=== PATIENT | female | born 1955 | race African-American/Black ===

== ENCOUNTER 2016-08-26 13:58 | Outpatient (CLI) ==
[2012-08-19 08:16] VITALS: TEMP 98.5
[2015-05-05 15:31] VITALS: BMI 35.2
[2016-08-27 13:04] LABS: HEPATITIS A ANTIBODY TOTAL Positive (Negative)
[2016-08-28 09:01] LABS: HEPATITIS B SURFACE ANTIBODY Reactive (.)
[2016-08-28 09:08] LABS: VARICELLA IGG ANTIBODY 1530 (Immune)
== END 2016-08-26 13:59 | disposition home or self-care (01) ==
LOC: LAB 13:58
PROVIDERS: ATTEND Internal Medicine
DX: Z11.59 Encounter for screening for other viral diseases (principal); Z76.2 Encounter for health supervision and care of other healthy infant and child
CPT/HCPCS: 36415; 86706; 86708; 86762; 86787; 87340

== ENCOUNTER 2017-11-02 12:48 | Outpatient (CLI) ==
[2012-08-19 08:16] VITALS: TEMP 98.5
[2015-05-05 15:31] VITALS: BMI 35.2
== END 2017-11-02 12:49 | disposition home or self-care (01) ==
LOC: LAB 12:48
PROVIDERS: ATTEND Internal Medicine
DX: Z11.59 Encounter for screening for other viral diseases (principal)
CPT/HCPCS: 36415; 86735; 86765